=== PATIENT | male | born 1965 | race Caucasian/White ===

== ENCOUNTER 2018-03-14 07:11 | Inpatient (IN) | payer OTHER ==
[2018-03-14] MEDS: IPRATROPIUM (NEB) 0.5 MG/2.5 ML AMP INH (07:36)
[2018-03-14] MEDS: ALBUTEROL 0.5% (NEB) 2.5 MG/0.5 ML AMP INH (07:36)
[2018-03-14] MEDS: SOD CHLORIDE 0.9% 1,000 ML IV (07:45)
[2018-03-14] MEDS: METHYLPREDNISOLONE 125 MG INJ IV ×3 (07:45→18:16)
[2018-03-14 08:02] LABS: ADD MAN DIFF? NO
[2018-03-14 08:07] LABS: WHITE BLOOD COUNT 11.3 10^3/ul (4.8-10.8)
[2018-03-14 08:07] LABS: BASOPHIL # 0.1 10^3/ul (0.0-0.1); BASOPHILS % 0.4 % (0.0-2.0); EOSINOPHILS # 0.5 10^3/ul (0.0-0.5); EOSINOPHILS % 4.5 % (0.0-7.0); HEMATOCRIT 50.5 % (42.0-52.0); HEMOGLOBIN 17.3 g/dl (14.0-18.0); LYMPHOCYTES # 3.5 10^3/ul (0.8-2.9); LYMPHOCYTES % 30.5 % (15.0-51.0); MEAN CORPUSCULAR HEMOGLOBIN 31.1 pg (29.0-33.0); MEAN CORPUSCULAR HGB CONC 34.3 g/dl (32.0-37.0); MEAN CORPUSCULAR VOLUME 90.8 fl (82.0-101.0); MEAN PLATELET VOLUME 9.9 fl (7.4-10.4); MONOCYTE # 0.8 10^3/ul (0.3-0.9); NEUTROPHIL # 6.5 10^3/ul (1.6-7.5); NEUTROPHILS % 57.3 % (39.0-77.0); PLATELET COUNT 265 10^3/UL (140-415); RED BLOOD COUNT 5.56 10^6/ul (4.70-6.10); RED CELL DISTRIBUTION WIDTH 13.4 % (11.5-14.5)
[2018-03-14 08:29] LABS: ALANINE AMINOTRANSFERASE 31 IU/L (13-69); ALBUMIN/GLOBULIN RATIO 1.11; ALKALINE PHOSPHATASE 131 IU/L (42-121); ANION GAP 17 (8-16); ASPARTATE AMINO TRANSFERASE 22 IU/L (15-46); BILIRUBIN,INDIRECT 0.5 mg/dl (0-1.1); BILIRUBIN,TOTAL 0.5 mg/dl (0.2-1.3); BLOOD UREA NITROGEN 19 mg/dl (7-20); CALCIUM 9.5 mg/dl (8.4-10.2); CARBON DIOXIDE 29 mmol/L (21-31); CHLORIDE 105 mmol/L (97-110); CREATININE 0.98 mg/dl (0.61-1.24); GLUCOSE 100 mg/dl (70-220); POTASSIUM 4.5 mmol/L (3.5-5.1); SODIUM 146 mmol/L (135-144); TOTAL PROTEIN 7.6 g/dl (6.1-8.1)
[2018-03-14 08:40] LABS: TROPONIN-I < 0.012 ng/ml (0.000-0.120)
[2018-03-14 08:42] LABS: AADO2 Arterial 72.7 mmHg (7.0-24.0); Allen Test ACCEPTAB; Arterial Base Excess -3.8 mmol/L (-3.0-3); Arterial COHb 0.8 % (0.0-3.0); Arterial Fraction of Oxyhgb 97.9 % (93.0-99.0); Arterial HCO3 22.5 mmol/L (22.0-26.0); Arterial MetHb 0.3 % (0.0-1.5); Arterial Total Hemglobin 16.1 g/dl (12.0-18.0); Arterial pCO2 44.9 mmhg (35-45); Blood Gas IEPAP 15/5; Blood Gas PS 10; MODE MASK - BIPAP; Site Right Radial
[2018-03-14] MEDS ORDERED: ONDANSETRON 4 MG INJ IV ×2 (09:30→11:00)
[2018-03-14] MEDS ORDERED: ACETAMINOPHEN 325 MG TAB PO (09:30)
[2018-03-14] MEDS ORDERED: NACL 0.9% 3 ML SYG IV (11:00)
[2018-03-14 11:31] LABS: CHOL/HDL RATIO 6.4 RATIO; HDL CHOLESTEROL 47 mg/dl (28-71); LDL CHOLESTEROL,CALCULATED 201 mg/dl; TRIGLYCERIDES 278 mg/dl (0-149)
[2018-03-14 11:31] LABS: CHOLESTEROL 304 mg/dl (100-200)
[2018-03-14] MEDS: FLUTICASONE/VILANTEROL 200-25 INH DEVICE INH (13:32)
[2018-03-14] MEDS: ALBUTEROL/IPRATROPIUM (NEB) 3 ML AMP HHN ×2 (14:12→20:34)
[2018-03-14 14:34] LABS: ADD UMIC NO; UR ASCORBIC ACID NEGATIVE (NEGATIVE); UR BILIRUBIN (Dip) NEGATIVE (NEGATIVE); UR BLOOD (Dip) NEGATIVE (NEGATIVE); UR CLARITY CLEAR (CLEAR); UR COLOR YELLOW (YELLOW); UR GLUCOSE (Dip) 3+ mg/dL (NEGATIVE); UR KETONES (Dip) NEGATIVE (NEGATIVE); UR LEUKOCYTE ESTERASE (Dip) NEGATIVE Leu/ul (NEGATIVE); UR NITRITE (Dip) NEGATIVE (NEGATIVE); UR SPECIFIC GRAVITY (Dip) 1.023 (1.003-1.030); UR TOTAL PROTEIN (Dip) NEGATIVE (NEGATIVE); UR UROBILINOGEN (Dip) NEGATIVE (NEGATIVE)
[2018-03-14 15:14] LABS: HEMOGLOBIN A1C 5.5 % (0-5.9)
[2018-03-14 20:13] LABS: AMPHETAMINE/METHAMPHETAMINE POSITIVE (NEGATIVE)
[2018-03-14 20:14] LABS: BARBITURATES NEGATIVE (NEGATIVE); BENZODIAZEPINES NEGATIVE (NEGATIVE); CANNABINOIDS NEGATIVE (NEGATIVE); COCAINE NEGATIVE (NEGATIVE); OPIATES POSITIVE (NEGATIVE)
[2018-03-14] MEDS: ATORVASTATIN 40 MG TAB PO (21:26)
[2018-03-14] MEDS: FAMOTIDINE 20 MG TAB PO (21:26)
[2018-03-15] MEDS: METHYLPREDNISOLONE 125 MG INJ IV ×3 (00:50→11:49)
[2018-03-15 06:53] LABS: ADD MAN DIFF? NO
[2018-03-15 07:03] LABS: ABNORMAL IP MESSAGE 1; BASOPHILS % 0.1 % (0.0-2.0); HEMATOCRIT 47.4 % (42.0-52.0); HEMOGLOBIN 16.6 g/dl (14.0-18.0); LYMPHOCYTES # 1.3 10^3/ul (0.8-2.9); MEAN CORPUSCULAR HEMOGLOBIN 31.4 pg (29.0-33.0); MEAN CORPUSCULAR VOLUME 89.8 fl (82.0-101.0); MEAN PLATELET VOLUME 10.6 fl (7.4-10.4); MONOCYTE # 0.3 10^3/ul (0.3-0.9); MONOCYTES % 1.3 % (0.0-11.0); NEUTROPHIL # 20.3 10^3/ul (1.6-7.5); PLATELET COUNT 289 10^3/UL (140-415); POSITIVE DIFF @See below; RED BLOOD COUNT 5.28 10^6/ul (4.70-6.10); RED CELL DISTRIBUTION WIDTH 13.3 % (11.5-14.5)
[2018-03-15 07:39] LABS: MAGNESIUM 2.1 mg/dl (1.7-2.5)
[2018-03-15 07:41] LABS: ALANINE AMINOTRANSFERASE 26 IU/L (13-69); ALBUMIN 3.7 g/dl (3.3-4.9); ALBUMIN/GLOBULIN RATIO 1.02; ALKALINE PHOSPHATASE 114 IU/L (42-121); ANION GAP 15 (8-16); ASPARTATE AMINO TRANSFERASE 19 IU/L (15-46); BILIRUBIN,INDIRECT 0.3 mg/dl (0-1.1); BILIRUBIN,TOTAL 0.3 mg/dl (0.2-1.3); BLOOD UREA NITROGEN 16 mg/dl (7-20); CALCIUM 9.5 mg/dl (8.4-10.2); CARBON DIOXIDE 23 mmol/L (21-31); CHLORIDE 107 mmol/L (97-110); CREATININE 0.81 mg/dl (0.61-1.24); GLUCOSE 168 mg/dl (70-220); POTASSIUM 4.1 mmol/L (3.5-5.1); SODIUM 141 mmol/L (135-144); TOTAL PROTEIN 7.3 g/dl (6.1-8.1)
[2018-03-15] MEDS: ALBUTEROL/IPRATROPIUM (NEB) 3 ML AMP HHN ×3 (07:49→19:38)
[2018-03-15] MEDS: FLUTICASONE/VILANTEROL 200-25 INH DEVICE INH (08:14)
[2018-03-15] MEDS: FAMOTIDINE 20 MG TAB PO ×2 (08:14→20:18)
[2018-03-15] MEDS: ENOXAPARIN 40 MG/0.4 ML SYG SC (08:15)
[2018-03-15] MEDS: ATORVASTATIN 40 MG TAB PO (20:18)
[2018-03-16] MEDS: ACETAMINOPHEN 325 MG TAB PO (03:02)
[2018-03-16] MEDS: ALBUTEROL/IPRATROPIUM (NEB) 3 ML AMP HHN ×2 (05:45→10:37)
[2018-03-16] MEDS: FLUTICASONE/VILANTEROL 200-25 INH DEVICE INH (08:31)
[2018-03-16] MEDS: FAMOTIDINE 20 MG TAB PO (08:31)
[2018-03-16] MEDS: predniSONE 10 MG TAB PO (08:31)
[2018-03-16] MEDS: ENOXAPARIN 40 MG/0.4 ML SYG SC (08:35)
== END 2018-03-16 13:44 | disposition home or self-care (01) | DRG 191 ==
LOC: E/R 07:11 → TEL 09:21
DX: J44.1 Chronic obstructive pulmonary disease with (acute) exacerbation (principal); E87.0 Hyperosmolality and hypernatremia; E78.5 Hyperlipidemia, unspecified; F15.10 Other stimulant abuse, uncomplicated; F12.10 Cannabis abuse, uncomplicated; F17.210 Nicotine dependence, cigarettes, uncomplicated; E66.9 Obesity, unspecified; Z68.32 Body mass index [BMI] 32.0-32.9, adult; Z71.3 Dietary counseling and surveillance
CPT/HCPCS: 36600; 71045; 80053; 80061; 80307; 81003; 82803; 83036; 83735; 84100; 84484; 85025; 93005; 94640; 94644; 94660; 94664; 96374; 99291-25

== ENCOUNTER 2018-05-16 18:44 | Emergency (ER) | payer OTHER ==
[2018-05-16] MEDS: predniSONE 20 MG TAB PO (19:09)
[2018-05-16] MEDS: ALBUTEROL 0.083% (NEB) 2.5 MG/3 ML AMP NEB ×2 (19:18→19:41)
[2018-05-16] MEDS: IPRATROPIUM (NEB) 0.5 MG/2.5 ML AMP NEB ×2 (19:18→19:41)
== END 2018-05-16 20:10 | disposition home or self-care (01) ==
LOC: E/R 18:44
DX: J45.901 Unspecified asthma with (acute) exacerbation (principal); J44.9 Chronic obstructive pulmonary disease, unspecified; F17.210 Nicotine dependence, cigarettes, uncomplicated
CPT/HCPCS: 94640; 94664; 99284-25

== ENCOUNTER 2018-05-21 15:07 | Emergency (ER) | payer OTHER ==
[2018-05-21] MEDS: ALBUTEROL 0.083% (NEB) 2.5 MG/3 ML AMP INH (16:32)
[2018-05-21] MEDS: IPRATROPIUM (NEB) 0.5 MG/2.5 ML AMP INH (16:32)
[2018-05-21] MEDS: METHYLPREDNISOLONE 125 MG INJ IV (16:35)
[2018-05-21] MEDS: CLINDAMYCIN 600 MG/D5W (PMX) 50 ML IVPB (16:35)
[2018-05-21] MEDS: SOD CHLORIDE 0.9% 500 ML IV (16:36)
[2018-05-21 16:40] LABS: ADD MAN DIFF? NO
[2018-05-21 16:42] LABS: BASOPHIL # 0.1 10^3/ul (0.0-0.1); BASOPHILS % 0.9 % (0.0-2.0); EOSINOPHILS # 1.3 10^3/ul (0.0-0.5); EOSINOPHILS % 14.3 % (0.0-7.0); HEMATOCRIT 40.2 % (42.0-52.0); HEMOGLOBIN 13.8 g/dl (14.0-18.0); LYMPHOCYTES # 3.5 10^3/ul (0.8-2.9); LYMPHOCYTES % 39.1 % (15.0-51.0); MEAN CORPUSCULAR HEMOGLOBIN 30.7 pg (29.0-33.0); MEAN CORPUSCULAR HGB CONC 34.3 g/dl (32.0-37.0); MEAN CORPUSCULAR VOLUME 89.3 fl (82.0-101.0); MEAN PLATELET VOLUME 9.5 fl (7.4-10.4); MONOCYTE # 0.7 10^3/ul (0.3-0.9); MONOCYTES % 7.8 % (0.0-11.0); NEUTROPHIL # 3.4 10^3/ul (1.6-7.5); NEUTROPHILS % 37.6 % (39.0-77.0); PLATELET COUNT 319 10^3/UL (140-415); RED CELL DISTRIBUTION WIDTH 13.2 % (11.5-14.5)
[2018-05-21 17:03] LABS: D-DIMER 682.85 ng/ml (<460)
[2018-05-21 17:11] LABS: ANION GAP 9 (5-13); BLOOD UREA NITROGEN 13 mg/dl (7-20); CALCIUM 9.1 mg/dl (8.4-10.2); CARBON DIOXIDE 29 mmol/L (21-31); CHLORIDE 105 mmol/L (97-110); CREATININE 0.99 mg/dl (0.61-1.24); Estimated GFR > 60 mL/min (>60); GLUCOSE 96 mg/dl (70-220); POTASSIUM 4.1 mmol/L (3.5-5.1); SODIUM 143 mmol/L (135-144)
[2018-05-21 17:20] LABS: TROPONIN-I < 0.012 ng/ml (0.000-0.120)
== END 2018-05-21 18:13 | disposition home or self-care (01) ==
LOC: FTE 18:13
DX: J44.1 Chronic obstructive pulmonary disease with (acute) exacerbation (principal); L03.113 Cellulitis of right upper limb; F19.10 Other psychoactive substance abuse, uncomplicated; J45.901 Unspecified asthma with (acute) exacerbation; F17.210 Nicotine dependence, cigarettes, uncomplicated
CPT/HCPCS: 71045; 80048; 84484; 85025; 85378; 93005; 94644; 96374; 96375; 99285-25

== ENCOUNTER 2018-09-23 07:00 | Emergency (ER) | payer OTHER ==
[2018-09-23] MEDS: predniSONE 20 MG TAB PO (08:09)
[2018-09-23] MEDS: ALBUTEROL 0.5% (NEB) 2.5 MG/0.5 ML AMP INH (08:11)
[2018-09-23] MEDS: IPRATROPIUM (NEB) 0.5 MG/2.5 ML AMP INH (08:11)
== END 2018-09-23 11:39 | disposition home or self-care (01) ==
LOC: E/R 07:00
DX: J44.1 Chronic obstructive pulmonary disease with (acute) exacerbation (principal)
CPT/HCPCS: 71045; 93005; 94644; 99284-25

== ENCOUNTER 2018-10-05 22:40 | Emergency (ER) | payer OTHER ==
[2018-10-05] MEDS: IPRATROPIUM (NEB) 0.5 MG/2.5 ML AMP NEB (23:19)
[2018-10-05] MEDS: ALBUTEROL 0.083% (NEB) 2.5 MG/3 ML AMP NEB (23:19)
[2018-10-05] MEDS: DEXAMETHASONE (1 MG/ML PO SYG) PO (23:37)
[2018-10-06] MEDS: IPRATROPIUM (NEB) 0.5 MG/2.5 ML AMP HHN (00:38)
[2018-10-06] MEDS: ALBUTEROL 0.083% (NEB) 2.5 MG/3 ML AMP HHN (00:38)
== END 2018-10-06 01:25 | disposition home or self-care (01) ==
LOC: FTE 10-06 01:25
DX: J44.1 Chronic obstructive pulmonary disease with (acute) exacerbation (principal); F17.200 Nicotine dependence, unspecified, uncomplicated
CPT/HCPCS: 94640; 94664; 99284-25

== ENCOUNTER 2018-10-19 12:08 | Emergency (ER) | payer OTHER ==
[2018-10-19] MEDS: DEXAMETHASONE 10 MG/ML 1 ML INJ IM (12:53)
[2018-10-19] MEDS: ALBUTEROL 0.083% (NEB) 2.5 MG/3 ML AMP HHN (13:05)
[2018-10-19] MEDS: IPRATROPIUM (NEB) 0.5 MG/2.5 ML AMP HHN (13:06)
== END 2018-10-19 14:22 | disposition home or self-care (01) ==
LOC: FTE 12:08
DX: R06.02 Shortness of breath (principal); J44.9 Chronic obstructive pulmonary disease, unspecified; Z76.0 Encounter for issue of repeat prescription
CPT/HCPCS: 93005; 94664; 96372; 99284-25

== ENCOUNTER 2018-10-29 23:28 | Emergency (ER) | payer SELFPAY, OTHER ==
[2018-10-29] MEDS: IPRATROPIUM (NEB) 0.5 MG/2.5 ML AMP INH (23:58)
[2018-10-29] MEDS: ALBUTEROL 0.5% (NEB) 2.5 MG/0.5 ML AMP INH (23:59)
[2018-10-30 00:09] LABS: ADD MAN DIFF? NO
[2018-10-30 00:11] LABS: BASOPHIL # 0.1 10^3/ul (0.0-0.1); BASOPHILS % 0.3 % (0.0-2.0); EOSINOPHILS # 1.2 10^3/ul (0.0-0.5); EOSINOPHILS % 6.6 % (0.0-7.0); HEMATOCRIT 44.8 % (42.0-52.0); HEMOGLOBIN 15.5 g/dl (14.0-18.0); LYMPHOCYTES # 2.5 10^3/ul (0.8-2.9); LYMPHOCYTES % 14.3 % (15.0-51.0); MEAN CORPUSCULAR HEMOGLOBIN 30.6 pg (29.0-33.0); MEAN CORPUSCULAR HGB CONC 34.6 g/dl (32.0-37.0); MEAN CORPUSCULAR VOLUME 88.5 fl (82.0-101.0); MEAN PLATELET VOLUME 9.8 fl (7.4-10.4); MONOCYTE # 0.7 10^3/ul (0.3-0.9); MONOCYTES % 4.1 % (0.0-11.0); NEUTROPHIL # 12.9 10^3/ul (1.6-7.5); NEUTROPHILS % 74.2 % (39.0-77.0); PLATELET COUNT 282 10^3/UL (140-415); RED BLOOD COUNT 5.06 10^6/ul (4.70-6.10); RED CELL DISTRIBUTION WIDTH 12.8 % (11.5-14.5)
[2018-10-30 00:11] LABS: WHITE BLOOD COUNT 17.4 10^3/ul (4.8-10.8)
[2018-10-30] MEDS: METHYLPREDNISOLONE 125 MG INJ IV (00:11)
[2018-10-30 00:28] LABS: ANION GAP 9 (5-13); BLOOD UREA NITROGEN 13 mg/dl (7-20); CARBON DIOXIDE 27 mmol/L (21-31); CHLORIDE 102 mmol/L (97-110); Estimated GFR > 60 mL/min (>60); GLUCOSE 177 mg/dl (70-220); POTASSIUM 3.5 mmol/L (3.5-5.1); SODIUM 138 mmol/L (135-144)
[2018-10-30 00:39] LABS: TROPONIN-I < 0.012 ng/ml (0.000-0.120)
[2018-10-30 00:56] LABS: Blood Gas IEPAP 18/8; MODE MASK - BIPAP; MetHgb Venous 0.4 %; Sample Type Blood venous; Site VENOUS LINE; Venous COHb 0.6 %; Venous Fraction OxyHgb 78.5 %; Venous Oxygen Sat 79.3 mmHG (55.0-75.0); Venous Total Hemglobin 16.2 g/dl
== END 2018-10-30 07:35 | disposition home or self-care (01) ==
LOC: E/R 23:28
DX: J44.1 Chronic obstructive pulmonary disease with (acute) exacerbation (principal); F17.210 Nicotine dependence, cigarettes, uncomplicated; R40.0 Somnolence; F19.10 Other psychoactive substance abuse, uncomplicated
CPT/HCPCS: 36415; 71045; 80048; 82803; 84484; 85025; 93005; 94644; 94660; 96374; 99285-25

== ENCOUNTER 2018-11-04 11:38 | Inpatient (IN) | payer MEDICAID ==
[2018-11-04] MEDS: METHYLPREDNISOLONE 125 MG INJ IV (12:00)
[2018-11-04] MEDS: LORAZEPAM 2 MG INJ IV (12:00)
[2018-11-04] MEDS: SODIUM CHLORIDE 0.9% 1L BAG IV* (12:11)
[2018-11-04] MEDS: ALBUTEROL 0.5% (NEB) 2.5 MG/0.5 ML AMP INH (12:16)
[2018-11-04] MEDS: IPRATROPIUM (NEB) 0.5 MG/2.5 ML AMP INH (12:16)
[2018-11-04 12:36] LABS: ADD MAN DIFF? NO
[2018-11-04 12:40] LABS: BASOPHIL # 0.1 10^3/ul (0.0-0.1); BASOPHILS % 0.3 % (0.0-2.0); EOSINOPHILS # 0.8 10^3/ul (0.0-0.5); EOSINOPHILS % 4.1 % (0.0-7.0); HEMATOCRIT 42.8 % (42.0-52.0); HEMOGLOBIN 14.4 g/dl (14.0-18.0); LYMPHOCYTES # 3.1 10^3/ul (0.8-2.9); LYMPHOCYTES % 15.2 % (15.0-51.0); MEAN CORPUSCULAR HEMOGLOBIN 30.3 pg (29.0-33.0); MEAN CORPUSCULAR HGB CONC 33.6 g/dl (32.0-37.0); MEAN CORPUSCULAR VOLUME 89.9 fl (82.0-101.0); MEAN PLATELET VOLUME 9.7 fl (7.4-10.4); MONOCYTES % 4.9 % (0.0-11.0); NEUTROPHIL # 15.4 10^3/ul (1.6-7.5); NEUTROPHILS % 74.6 % (39.0-77.0); PLATELET COUNT 269 10^3/UL (140-415); RED BLOOD COUNT 4.76 10^6/ul (4.70-6.10); RED CELL DISTRIBUTION WIDTH 13.4 % (11.5-14.5)
[2018-11-04 12:40] LABS: WHITE BLOOD COUNT 20.7 10^3/ul (4.8-10.8)
[2018-11-04] MEDS: LEVOFLOXACIN 750MG/D5W (PMX) 150 ML IVPB (12:46)
[2018-11-04 13:00] LABS: ALANINE AMINOTRANSFERASE 44 IU/L (13-69); ALBUMIN/GLOBULIN RATIO 1.21; ALKALINE PHOSPHATASE 124 IU/L (42-121); ANION GAP 10 (5-13); ASPARTATE AMINO TRANSFERASE 31 IU/L (15-46); BILIRUBIN,INDIRECT 0.5 mg/dl (0-1.1); BILIRUBIN,TOTAL 0.5 mg/dl (0.2-1.3); BLOOD UREA NITROGEN 11 mg/dl (7-20); CALCIUM 8.8 mg/dl (8.4-10.2); CARBON DIOXIDE 25 mmol/L (21-31); CHLORIDE 106 mmol/L (97-110); CREATINE KINASE 50 IU/L (23-200); CREATININE 0.92 mg/dl (0.61-1.24); Estimated GFR > 60 mL/min (>60); GLUCOSE 176 mg/dl (70-220); POTASSIUM 4.2 mmol/L (3.5-5.1); SODIUM 141 mmol/L (135-144); TOTAL PROTEIN 7.3 g/dl (6.1-8.1)
[2018-11-04] MEDS ORDERED: ONDANSETRON 4 MG INJ IV ×2 (13:00→14:30)
[2018-11-04] MEDS ORDERED: ACETAMINOPHEN 325 MG TAB PO ×2 (13:00→14:30)
[2018-11-04 13:05] LABS: INR 0.92; PROTIME 12.5 Sec (11.9-14.9)
[2018-11-04 13:06] LABS: PARTIAL THROMBOPLASTIN TIME 31.1 Sec (23.0-35.0)
[2018-11-04 13:10] LABS: B-TYPE NATRIURETIC PEPTIDE 41 PG/ML (0-125); CK INDEX 2.3; CK-MB 1.14 ng/ml (0.0-2.4); TROPONIN-I < 0.012 ng/ml (0.000-0.120)
[2018-11-04 13:58] LABS: ADD UMIC YES; UR ASCORBIC ACID NEGATIVE (NEGATIVE); UR BILIRUBIN (Dip) NEGATIVE (NEGATIVE); UR BLOOD (Dip) NEGATIVE (NEGATIVE); UR CLARITY SLIGHTLY CLOUDY (CLEAR); UR COLOR YELLOW (YELLOW); UR GLUCOSE (Dip) NEGATIVE (NEGATIVE); UR KETONES (Dip) NEGATIVE (NEGATIVE); UR LEUKOCYTE ESTERASE (Dip) NEGATIVE Leu/ul (NEGATIVE); UR MUCUS FEW /HPF (NONE SEEN); UR NITRITE (Dip) NEGATIVE (NEGATIVE); UR RBC 4 /HPF (0-5); UR SPECIFIC GRAVITY (Dip) 1.024 (1.003-1.030); UR TOTAL PROTEIN (Dip) 1+ mg/dl (NEGATIVE); UR UROBILINOGEN (Dip) NEGATIVE (NEGATIVE); UR WBC 1 /HPF (0-5)
[2018-11-04 14:10] LABS: AADO2 Arterial 150.2 mmHg (7.0-24.0); Arterial Blood Gas Oxygen Sat 98.8 mmHG (95.0-98.0); Arterial COHb 0 % (0.0-3.0); Arterial Fraction of Oxyhgb 98.5 % (93.0-99.0); Arterial HCO3 22.7 mmol/L (22.0-26.0); Arterial MetHb 0.3 % (0.0-1.5); Arterial pCO2 47.7 mmhg (35-45); Blood Gas IEPAP 18/5; Blood Gas PS 13; MODE MASK - BIPAP; Site LB
[2018-11-04 14:21] LABS: BARBITURATES Negative (NEGATIVE); BENZODIAZEPINES Negative (NEGATIVE); CANNABINOIDS Negative (NEGATIVE); COCAINE Negative (NEGATIVE)
[2018-11-04 14:25] LABS: OPIATES Positive (NEGATIVE)
[2018-11-04] MEDS ORDERED: NACL 0.9% 3 ML SYG IV (14:30)
[2018-11-04] MEDS ORDERED: ALBUTEROL/IPRATROPIUM (NEB) 3 ML AMP HHN (14:30)
[2018-11-04] MEDS ORDERED: LORAZEPAM 2 MG INJ IV (14:30)
[2018-11-04] MEDS: VANCOMYCIN 1 GM (PMX) 250 ML IVPB (14:32)
[2018-11-04 14:55] LABS: AMPHETAMINE/METHAMPHETAMINE POSITIVE (NEGATIVE)
[2018-11-04 15:11] LABS: ETHANOL < 10.0 mg/dl (0-0)
[2018-11-04 16:04] LABS: LACTIC ACID 2.7 mmol/L (0.5-2.0)
[2018-11-04] MEDS: ALBUTEROL/IPRATROPIUM (NEB) 3 ML AMP HHN ×2 (17:00→20:20)
[2018-11-05] MEDS: ALBUTEROL/IPRATROPIUM (NEB) 3 ML AMP HHN ×6 (01:12→19:47)
[2018-11-05] MEDS: METHYLPREDNISOLONE 125 MG INJ IV ×4 (03:16→23:06)
[2018-11-05] MEDS: PANTOPRAZOLE 40 MG INJ IV (05:45)
[2018-11-05 06:16] LABS: ADD MAN DIFF? NO
[2018-11-05 06:21] LABS: WHITE BLOOD COUNT 13.5 10^3/ul (4.8-10.8)
[2018-11-05 06:21] LABS: BASOPHILS % 0.1 % (0.0-2.0); HEMATOCRIT 42.3 % (42.0-52.0); HEMOGLOBIN 14.2 g/dl (14.0-18.0); LYMPHOCYTES # 1.1 10^3/ul (0.8-2.9); LYMPHOCYTES % 7.8 % (15.0-51.0); MEAN CORPUSCULAR HEMOGLOBIN 30.4 pg (29.0-33.0); MEAN CORPUSCULAR HGB CONC 33.6 g/dl (32.0-37.0); MEAN CORPUSCULAR VOLUME 90.6 fl (82.0-101.0); MEAN PLATELET VOLUME 10.2 fl (7.4-10.4); MONOCYTE # 0.1 10^3/ul (0.3-0.9); NEUTROPHIL # 12.3 10^3/ul (1.6-7.5); NEUTROPHILS % 90.7 % (39.0-77.0); PLATELET COUNT 265 10^3/UL (140-415); RED BLOOD COUNT 4.67 10^6/ul (4.70-6.10); RED CELL DISTRIBUTION WIDTH 13.1 % (11.5-14.5)
[2018-11-05 06:54] LABS: ALANINE AMINOTRANSFERASE 32 IU/L (13-69); ALBUMIN 3.9 g/dl (3.3-4.9); ALBUMIN/GLOBULIN RATIO 1.08; ALKALINE PHOSPHATASE 116 IU/L (42-121); ANION GAP 10 (5-13); ASPARTATE AMINO TRANSFERASE 22 IU/L (15-46); BILIRUBIN,INDIRECT 0.6 mg/dl (0-1.1); BILIRUBIN,TOTAL 0.6 mg/dl (0.2-1.3); BLOOD UREA NITROGEN 10 mg/dl (7-20); CALCIUM 8.6 mg/dl (8.4-10.2); CARBON DIOXIDE 27 mmol/L (21-31); CHLORIDE 105 mmol/L (97-110); CREATININE 0.73 mg/dl (0.61-1.24); Estimated GFR > 60 mL/min (>60); GLUCOSE 137 mg/dl (70-220); POTASSIUM 4.5 mmol/L (3.5-5.1); SODIUM 142 mmol/L (135-144); TOTAL PROTEIN 7.5 g/dl (6.1-8.1)
[2018-11-05 06:57] LABS: CHOL/HDL RATIO 3.6 RATIO; LDL CHOLESTEROL,CALCULATED 130 mg/dl
[2018-11-05 07:16] LABS: CHOLESTEROL 247 mg/dl (100-200); HDL CHOLESTEROL 68 mg/dl (28-71); MAGNESIUM 2.1 mg/dl (1.7-2.5); TRIGLYCERIDES 247 mg/dl (0-149)
[2018-11-05 07:16] LABS: PHOSPHORUS 2.4 mg/dl (2.5-4.9)
[2018-11-05] MEDS: hydrALAzine 20 MG INJ IV (09:00)
[2018-11-05] MEDS: LEVOFLOXACIN 500MG/D5W (PMX) 100 ML IVPB (13:11)
[2018-11-06] MEDS: ALBUTEROL/IPRATROPIUM (NEB) 3 ML AMP HHN ×3 (01:08→13:10)
[2018-11-06 06:11] LABS: WHITE BLOOD COUNT 18.1 10^3/ul (4.8-10.8)
[2018-11-06 06:11] LABS: HEMATOCRIT 38.6 % (42.0-52.0); HEMOGLOBIN 12.8 g/dl (14.0-18.0); MEAN CORPUSCULAR HEMOGLOBIN 29.9 pg (29.0-33.0); MEAN CORPUSCULAR HGB CONC 33.2 g/dl (32.0-37.0); MEAN CORPUSCULAR VOLUME 90.2 fl (82.0-101.0); POSITIVE DIFF @See below; RED BLOOD COUNT 4.28 10^6/ul (4.70-6.10); RED CELL DISTRIBUTION WIDTH 13.4 % (11.5-14.5)
[2018-11-06 06:16] LABS: ADD MAN DIFF? YES; MEAN PLATELET VOLUME 12.5 fl (7.4-10.4); PLATELET COUNT 181 10^3/UL (140-415)
[2018-11-06 06:31] LABS: MAGNESIUM 2.3 mg/dl (1.7-2.5)
[2018-11-06 06:31] LABS: PHOSPHORUS 3.1 mg/dl (2.5-4.9)
[2018-11-06] MEDS: METHYLPREDNISOLONE 125 MG INJ IV ×2 (06:31→13:17)
[2018-11-06] MEDS: PANTOPRAZOLE (EC) 40 MG TAB PO (06:31)
[2018-11-06 06:37] LABS: ANION GAP 7 (5-13); BLOOD UREA NITROGEN 23 mg/dl (7-20); CARBON DIOXIDE 25 mmol/L (21-31); CHLORIDE 105 mmol/L (97-110); Estimated GFR > 60 mL/min (>60); GLUCOSE 164 mg/dl (70-220); POTASSIUM 4.3 mmol/L (3.5-5.1); SODIUM 137 mmol/L (135-144)
[2018-11-06 09:35] LABS: BAND NEUTROPHILS #M 1.2 10^3/ul (0.0-0.6); BAND NEUTROPHILS % (M) 7 % (0-4); LYMPHOCYTES #M 1.2 10^3/ul (0.8-2.9); LYMPHOCYTES % (M) 7 % (15-51); MONOCYTE #M 0.9 10^3/ul (0.3-0.9); MONOCYTES % (M) 5 % (0-11); PLATELET ESTIMATE NORMAL; SEG NEUT #M 14.9 10^3/ul (1.6-7.5); SEGMENTED NEUTROPHILS (M) % 81 % (39-77); SMUDGE%M 46 % (0-0)
[2018-11-06 12:16] LABS: PROCALCITONIN 0.25 ng/mL (0.00-0.10)
[2018-11-06] MEDS: LEVOFLOXACIN 500MG/D5W (PMX) 100 ML IVPB (13:17)
== END 2018-11-06 16:05 | disposition home or self-care (01) | DRG 871 ==
LOC: E/R 11:38 → TEL 12:45 → 2NE 11-05 18:36
PROVIDERS: Internal Medicine
DX: A41.9 Sepsis, unspecified organism (principal); J96.02 Acute respiratory failure with hypercapnia; J96.01 Acute respiratory failure with hypoxia; J44.1 Chronic obstructive pulmonary disease with (acute) exacerbation; G93.40 Encephalopathy, unspecified; R65.20 Severe sepsis without septic shock; F15.10 Other stimulant abuse, uncomplicated; F11.10 Opioid abuse, uncomplicated; Z72.0 Tobacco use; G47.33 Obstructive sleep apnea (adult) (pediatric)
CPT/HCPCS: 36600; 71045; 80048; 80053; 80061; 80307; 81001; 82550; 82553; 82803; 83605; 83735; 83880; 84100; 84145; 84484; 85025; 85610; 85730; 87040-91; 87400; 93005; 94640; 94644; 94660; 94664; 96374; 96375; 99291-25

== ENCOUNTER 2018-11-30 00:09 | Inpatient (IN) | payer MEDICAID, OTHER ==
[2018-11-30] MEDS: NALOXONE 2 MG SYG IV (00:27)
[2018-11-30 00:52] LABS: ADD MAN DIFF? NO
[2018-11-30] MEDS: ALBUTEROL 0.5% (NEB) 2.5 MG/0.5 ML AMP INH (00:53)
[2018-11-30] MEDS: IPRATROPIUM (NEB) 0.5 MG/2.5 ML AMP INH (00:53)
[2018-11-30 00:54] LABS: WHITE BLOOD COUNT 15.6 10^3/ul (4.8-10.8)
[2018-11-30 00:54] LABS: ABNORMAL IP MESSAGE 1; BASOPHIL # 0.1 10^3/ul (0.0-0.1); BASOPHILS % 0.6 % (0.0-2.0); EOSINOPHILS # 2.8 10^3/ul (0.0-0.5); EOSINOPHILS % 17.8 % (0.0-7.0); HEMATOCRIT 43.1 % (42.0-52.0); HEMOGLOBIN 14.5 g/dl (14.0-18.0); LYMPHOCYTES # 4.4 10^3/ul (0.8-2.9); LYMPHOCYTES % 28.2 % (15.0-51.0); MEAN CORPUSCULAR HEMOGLOBIN 30.2 pg (29.0-33.0); MEAN CORPUSCULAR HGB CONC 33.6 g/dl (32.0-37.0); MEAN CORPUSCULAR VOLUME 89.8 fl (82.0-101.0); MEAN PLATELET VOLUME 9.6 fl (7.4-10.4); MONOCYTE # 1.3 10^3/ul (0.3-0.9); NEUTROPHIL # 6.9 10^3/ul (1.6-7.5); NEUTROPHILS % 44.2 % (39.0-77.0); PLATELET COUNT 427 10^3/UL (140-415); POSITIVE DIFF @See below; RED CELL DISTRIBUTION WIDTH 13.4 % (11.5-14.5)
[2018-11-30] MEDS ORDERED: LORAZEPAM 2 MG INJ (01:02)
[2018-11-30] MEDS: SOD CHLORIDE 0.9% 500 ML IV (01:05)
[2018-11-30 01:17] LABS: ALANINE AMINOTRANSFERASE 36 IU/L (13-69); ALBUMIN 4.4 g/dl (3.3-4.9); ALBUMIN/GLOBULIN RATIO 1.15; ALKALINE PHOSPHATASE 141 IU/L (42-121); ANION GAP 14 (5-13); ASPARTATE AMINO TRANSFERASE 54 IU/L (15-46); BILIRUBIN,INDIRECT 0.4 mg/dl (0-1.1); BILIRUBIN,TOTAL 0.4 mg/dl (0.2-1.3); BLOOD UREA NITROGEN 13 mg/dl (7-20); CALCIUM 9.1 mg/dl (8.4-10.2); CARBON DIOXIDE 23 mmol/L (21-31); CHLORIDE 102 mmol/L (97-110); CREATININE 1.19 mg/dl (0.61-1.24); Estimated GFR > 60 mL/min (>60); GLUCOSE 246 mg/dl (70-220); POTASSIUM 4.6 mmol/L (3.5-5.1); SODIUM 139 mmol/L (135-144); TOTAL PROTEIN 8.2 g/dl (6.1-8.1)
[2018-11-30] MEDS: LORAZEPAM 2 MG INJ IV ×2 (01:32→02:00)
[2018-11-30 01:39] LABS: ACETAMINOPHEN < 10.0 ug/ml (10.0-30.0); SALICYLATE < 1.0 mg/dl (5.0-30.0)
[2018-11-30 01:40] LABS: ETHANOL < 10.0 mg/dl (0-0)
[2018-11-30 01:55] LABS: ADD UMIC YES; UR ASCORBIC ACID NEGATIVE (NEGATIVE); UR BILIRUBIN (Dip) NEGATIVE (NEGATIVE); UR BLOOD (Dip) 1+ mg/dL (NEGATIVE); UR CLARITY SLIGHTLY CLOUDY (CLEAR); UR COLOR YELLOW (YELLOW); UR GLUCOSE (Dip) 1+ mg/dL (NEGATIVE); UR GRANULAR CAST FEW /HPF (NONE SEEN); UR KETONES (Dip) NEGATIVE (NEGATIVE); UR LEUKOCYTE ESTERASE (Dip) NEGATIVE Leu/ul (NEGATIVE); UR MUCUS FEW /HPF (NONE SEEN); UR NITRITE (Dip) NEGATIVE (NEGATIVE); UR RBC 4 /HPF (0-5); UR SPECIFIC GRAVITY (Dip) 1.021 (1.003-1.030); UR SQUAMOUS EPITHELIAL CELL FEW /HPF (FEW); UR TOTAL PROTEIN (Dip) 2+ mg/dl (NEGATIVE); UR UROBILINOGEN (Dip) NEGATIVE (NEGATIVE); UR WBC 11 /HPF (0-5)
[2018-11-30 02:03] LABS: BARBITURATES Negative (NEGATIVE); BENZODIAZEPINES Negative (NEGATIVE); CANNABINOIDS Negative (NEGATIVE); COCAINE Positive (NEGATIVE)
[2018-11-30 02:16] LABS: AMPHETAMINE/METHAMPHETAMINE Positive (NEGATIVE); OPIATES Positive (NEGATIVE)
[2018-11-30 02:24] LABS: AADO2 Arterial 141.2 mmHg (7.0-24.0); Allen Test ACCEPTAB; Arterial Base Excess -5.1 mmol/L (-3.0-3); Arterial Blood Gas Oxygen Sat 98.8 mmHG (95.0-98.0); Arterial COHb 0.3 % (0.0-3.0); Arterial Fraction of Oxyhgb 98.1 % (93.0-99.0); Arterial HCO3 22.9 mmol/L (22.0-26.0); Arterial MetHb 0.4 % (0.0-1.5); Arterial pCO2 54.6 mmhg (35-45); Blood Gas IEPAP 15/5; MODE MASK - BIPAP; Site Right Radial
[2018-11-30] MEDS ORDERED: BISACODYL (EC) 5 MG TAB PO (05:30)
[2018-11-30] MEDS ORDERED: ONDANSETRON 4 MG INJ IV ×2 (05:30)
[2018-11-30] MEDS ORDERED: NACL 0.9% 3 ML SYG IV (05:30)
[2018-11-30] MEDS ORDERED: LEVALBUTEROL (NEB) 1.25 MG/0.5 ML AMP HHN (05:30)
[2018-11-30] MEDS ORDERED: DOCUSATE SODIUM 100 MG CAP PO (05:30)
[2018-11-30] MEDS ORDERED: ACETAMINOPHEN 325 MG TAB PO ×2 (05:30)
[2018-11-30] MEDS: HEPARIN 5,000 UNIT/1 ML VIAL SC ×3 (06:10→23:53)
[2018-11-30] MEDS ORDERED: hydrOXYzine HCL 10 MG TAB PO (09:00)
[2018-11-30] MEDS ORDERED: DICYCLOMINE 10 MG CAP PO (09:00)
[2018-11-30] MEDS: METHYLPREDNISOLONE 40 MG INJ IV ×2 (10:18→18:25)
[2018-11-30] MEDS: LEVOFLOXACIN 750MG/D5W (PMX) 150 ML IVPB (17:02)
[2018-11-30] MEDS: ALBUTEROL/IPRATROPIUM (NEB) 3 ML AMP HHN (20:48)
[2018-12-01] MEDS: METHYLPREDNISOLONE 40 MG INJ IV ×3 (02:22→22:11)
[2018-12-01 05:24] LABS: ADD MAN DIFF? NO
[2018-12-01 05:57] LABS: ANION GAP 11 (5-13); BLOOD UREA NITROGEN 16 mg/dl (7-20); CALCIUM 9.1 mg/dl (8.4-10.2); CARBON DIOXIDE 26 mmol/L (21-31); CHLORIDE 104 mmol/L (97-110); CREATININE 0.73 mg/dl (0.61-1.24); GLUCOSE 119 mg/dl (70-220); MAGNESIUM 2.2 mg/dl (1.7-2.5); PHOSPHORUS 2.3 mg/dl (2.5-4.9); POTASSIUM 4.6 mmol/L (3.5-5.1); SODIUM 141 mmol/L (135-144)
[2018-12-01] MEDS: HEPARIN 5,000 UNIT/1 ML VIAL SC ×3 (06:08→22:15)
[2018-12-01] MEDS: ALBUTEROL/IPRATROPIUM (NEB) 3 ML AMP HHN ×3 (08:00→20:29)
[2018-12-01 09:44] LABS: BASOPHILS % 0.1 % (0.0-2.0); HEMATOCRIT 38.9 % (42.0-52.0); HEMOGLOBIN 13.3 g/dl (14.0-18.0); LYMPHOCYTES # 1.2 10^3/ul (0.8-2.9); LYMPHOCYTES % 9.3 % (15.0-51.0); MEAN CORPUSCULAR HEMOGLOBIN 29.7 pg (29.0-33.0); MEAN CORPUSCULAR HGB CONC 34.2 g/dl (32.0-37.0); MEAN CORPUSCULAR VOLUME 86.8 fl (82.0-101.0); MEAN PLATELET VOLUME 9.9 fl (7.4-10.4); MONOCYTE # 0.5 10^3/ul (0.3-0.9); NEUTROPHIL # 10.8 10^3/ul (1.6-7.5); NEUTROPHILS % 86.1 % (39.0-77.0); PLATELET COUNT 345 10^3/UL (140-415); RED BLOOD COUNT 4.48 10^6/ul (4.70-6.10); RED CELL DISTRIBUTION WIDTH 13.2 % (11.5-14.5)
[2018-12-01 09:44] LABS: WHITE BLOOD COUNT 12.5 10^3/ul (4.8-10.8)
[2018-12-01] MEDS: LEVOFLOXACIN 750MG/D5W (PMX) 150 ML IVPB (15:46)
[2018-12-01] MEDS: LORAZEPAM 2 MG INJ IV ×3 (16:52→19:36)
[2018-12-02] MEDS: ALBUTEROL/IPRATROPIUM (NEB) 3 ML AMP HHN ×4 (01:00→13:49)
[2018-12-02 06:58] LABS: ADD MAN DIFF? NO
[2018-12-02 07:01] LABS: WHITE BLOOD COUNT 9.8 10^3/ul (4.8-10.8)
[2018-12-02 07:01] LABS: HEMATOCRIT 39.4 % (42.0-52.0); HEMOGLOBIN 13.2 g/dl (14.0-18.0); LYMPHOCYTES % 10.4 % (15.0-51.0); MEAN CORPUSCULAR HEMOGLOBIN 29.4 pg (29.0-33.0); MEAN CORPUSCULAR HGB CONC 33.5 g/dl (32.0-37.0); MEAN CORPUSCULAR VOLUME 87.8 fl (82.0-101.0); MEAN PLATELET VOLUME 9.9 fl (7.4-10.4); MONOCYTE # 0.4 10^3/ul (0.3-0.9); MONOCYTES % 3.8 % (0.0-11.0); NEUTROPHIL # 8.3 10^3/ul (1.6-7.5); NEUTROPHILS % 85.1 % (39.0-77.0); PLATELET COUNT 344 10^3/UL (140-415); RED BLOOD COUNT 4.49 10^6/ul (4.70-6.10); RED CELL DISTRIBUTION WIDTH 13.1 % (11.5-14.5)
[2018-12-02 07:10] LABS: ALBUMIN 3.7 g/dl (3.3-4.9); ANION GAP 7 (5-13); BLOOD UREA NITROGEN 23 mg/dl (7-20); CALCIUM 9.4 mg/dl (8.4-10.2); CARBON DIOXIDE 31 mmol/L (21-31); CHLORIDE 99 mmol/L (97-110); CREATININE 0.92 mg/dl (0.61-1.24); GLUCOSE 180 mg/dl (70-220); MAGNESIUM 2.2 mg/dl (1.7-2.5); PHOSPHORUS 3.7 mg/dl (2.5-4.9); POTASSIUM 5.1 mmol/L (3.5-5.1); SODIUM 137 mmol/L (135-144)
[2018-12-02] MEDS: HEPARIN 5,000 UNIT/1 ML VIAL SC ×2 (07:31→13:44)
[2018-12-02] MEDS: METHYLPREDNISOLONE 40 MG INJ IV (08:49)
[2018-12-02] MEDS: LEVOFLOXACIN 750 MG TABLET PO (16:41)
[2018-12-03] MEDS ORDERED: predniSONE 50 MG TAB PO (09:00)
[2018-12-06 10:55] LABS: AADO2 Arterial 58.1 mmHg (7.0-24.0); Allen Test ACCEPTAB; Arterial Base Excess -2.7 mmol/L (-3.0-3); Arterial Blood Gas Oxygen Sat 97.7 mmHG (95.0-98.0); Arterial COHb 0.1 % (0.0-3.0); Arterial Fraction of Oxyhgb 97.3 % (93.0-99.0); Arterial HCO3 23.5 mmol/L (22.0-26.0); Arterial MetHb 0.3 % (0.0-1.5); Blood Gas IEPAP 15/5; Blood Gas PS 10; MODE MASK - BIPAP; Site Left Radial
== END 2018-12-02 18:29 | disposition home or self-care (01) | DRG 917 ==
LOC: E/R 00:09 → 6WM 05:07
PROC: 5A0935Z Assistance with Respiratory Ventilation, Less than 24 Consecutive Hours (ICD-10-PCS; principal; 2018-11-30)
DX: T40.1X1A Poisoning by heroin, accidental (unintentional), initial encounter (principal); J96.01 Acute respiratory failure with hypoxia; J44.1 Chronic obstructive pulmonary disease with (acute) exacerbation; Z72.0 Tobacco use; F15.90 Other stimulant use, unspecified, uncomplicated; F11.90 Opioid use, unspecified, uncomplicated
CPT/HCPCS: 36415; 36600; 71045; 80053; 80069; 80307; 81001; 82803; 83735; 85025; 94640; 94644; 94660; 94664; 96374; 96375; 99285-25